=== PATIENT | female | born 1960 | race Two or more races ===

== ENCOUNTER 2018-04-30 07:44 | Outpatient (CLI) | payer OTHER | END 2018-04-30 07:48 | disposition home or self-care (01) | LOC: SONOGRAMA 07:44 | DX: E04.1 Nontoxic single thyroid nodule (principal) ==

== ENCOUNTER 2024-07-15 07:15 | Day surgery (SDC) | payer OTHER ==
[2024-07-15] MEDS ORDERED: POVIDONE-IODINE 118 ML BOTT TOP ONE (10:55)
[2024-07-15] MEDS ORDERED: TYLENOL325 MG PO (11:56)
== END 2024-07-15 15:45 | disposition home or self-care (01) ==
LOC: CIR.AMB 07:15
PROVIDERS: ATTEND Obstetrics & Gynecology Gynecology
DX: N95.0 Postmenopausal bleeding (principal)